=== PATIENT | female | born 1950 | race Two or more races ===

== ENCOUNTER 2018-09-04 09:43 | Outpatient (CLI) | payer OTHER | END 2018-09-04 09:47 | disposition home or self-care (01) | LOC: RAD 09:43 | DX: M75.82 Other shoulder lesions, left shoulder (principal) ==

== ENCOUNTER 2021-01-16 09:45 | Outpatient (CLI) | payer OTHER | END 2021-01-16 09:52 | disposition home or self-care (01) | LOC: RAD 09:45 | PROVIDERS: ATTEND Internal Medicine Rheumatology | DX: M62.838 Other muscle spasm (principal); M54.2 Cervicalgia; M75.82 Other shoulder lesions, left shoulder; M75.81 Other shoulder lesions, right shoulder; M47.812 Spondylosis without myelopathy or radiculopathy, cervical region ==

== ENCOUNTER 2022-07-02 08:51 | Outpatient (CLI) | payer OTHER | END 2022-07-02 08:55 | disposition home or self-care (01) | LOC: RAD 08:51 | DX: M99.01 Segmental and somatic dysfunction of cervical region (principal); M99.02 Segmental and somatic dysfunction of thoracic region; M99.03 Segmental and somatic dysfunction of lumbar region; M99.05 Segmental and somatic dysfunction of pelvic region; M25.511 Pain in right shoulder ==

== ENCOUNTER → 2022-10-07 | Emergency (ER) | payer OTHER ==
[~2022-10-07] VITALS: Ht 167.6 cm; Wt 86.2 kg
[~2022-10-07] MED LIST: AMLODIPINE BESYL5 MG PO; ATORVASTATIN CA10 MG PO; KETO10TA2 PO; LOSARTAN-HCTZ1 EAC1 PO; METFORMIN HCL500 M4 PO; NORFLEX100MG PO; VITAMIN D310 MCG/1 M PO
== END | disposition home or self-care (01) ==
LOC: ER 10:51
DX: M54.50 Low back pain, unspecified (principal)